=== PATIENT | male | born 1960 | race Caucasian/White ===

== ENCOUNTER 2018-10-20 10:35 | Inpatient (IN) | payer BC, OTHER ==
[2018-10-20] MEDS ORDERED: DEXTROSE 5% IN WATER 100 ML with AMIODARONE 150 MG IV ONE (10:43)
[2018-10-20] MEDS ORDERED: AMIODARONE 360 MG in DEXTROSE 5% IN WATER 200 ML IV ONE ×2 (10:43)
--- NOTE | 2018-10-20 10:50 | ED ---
General Adult HPI - General Chief complaint: Arrhythmia/Palpitations Stated complaint: AFIB Time Seen by Provider: 10/20/18 10:40 Source: RN/MD, EMS, RN notes reviewed Mode of arrival: EMS Limitations: no limitations - History of Present Illness Initial comments: Patient is a pleasant 38-year-old male presenting to the emergency Department as a transfer from Dr. Salas's office. Patient has had intermittent A. fib over the past several days. Patient has associated nausea. Patient has had one or 2 syncopal episodes. Patient does have history of known atrial fibrillation. Patient states he has had this problem of times previously, these episodes have been the past couple of days. Patient states episodes have been more so over the past couple months in fact. Patient does have history of this prior to the past couple of months as well. - Related Data Home Medications Medication Instructions Recorded Confirmed Acetaminophen [Tylenol] 325 mg PO Q4H PRN 05/18/14 10/20/18 Previous Rx's Medication Instructions Recorded Atenolol [Tenormin] 50 mg PO DAILY #90 tab 05/23/14 Flecainide [Tambocor] 50 mg PO Q12HR #180 tablet 05/23/14 Allergies Allergy/AdvReac Type Severity Reaction Status Date / Time adhesive AdvReac RED WELTS Verified 10/20/18 10:52 (WHEN ON FOR EXTENDED PERIODS) Review of Systems ROS Statement: Those systems with pertinent positive or pertinent negative responses have been documented in the HPI. ROS Other: All systems not noted in ROS Statement are negative. Constitutional: Denies: fever Eyes: Denies: eye pain ENT: Denies: ear pain Respiratory: Denies: cough, dyspnea Cardiovascular: Reports: palpitations Endocrine: Denies: fatigue Gastrointestinal: Reports: nausea. Denies: abdominal pain Genitourinary: Denies: dysuria Musculoskeletal: Denies: back pain Skin: Denies: rash Neurological: Denies: weakness, confusion Past Medical History Past Medical History: Atrial Fibrillation, Atrial Flutter Additional Past Medical History / Comment(s): RECENT STRAIN RT KNEE. SEE DR SALAS'S H&P. BEING TESTED FOR SLEEP APNEA, HAS 2ND STUDY PLANNED. History of Any Multi-Drug Resistant Organisms: None Reported Past Surgical History: Cardiac Ablation, Heart Catheterization Additional Past Surgical History / Comment(s): ABLATION 09/03, 10/03; CARDIOVERSION; C. CATH 12/2013. EXC WISDOM TEETH. Past Anesthesia/Blood Transfusion Reactions: No Reported Reaction Past Psychological History: Anxiety Smoking Status: Former smoker Past Alcohol Use History: None Reported Past Drug Use History: None Reported - Past Family History Mother Sister(s) Family Medical History: Cancer General Exam Limitations: no limitations General appearance: alert Head exam: Present: atraumatic, normocephalic Eye exam: Present: normal appearance, PERRL Neck exam: Present: normal inspection Respiratory exam: Present: normal lung sounds bilaterally Cardiovascular Exam: Present: tachycardia, irregular rhythm Expanded Peripheral pulses: 2+: Radial (R), Radial (L), Dorsalis Pedis (R), Dorsalis Pedis (L) GI/Abdominal exam: Present: soft. Absent: tenderness Extremities exam: Present: normal inspection. Absent: pedal edema, calf tenderness Neurological exam: Present: alert, oriented X3, CN II-XII intact. Absent: motor sensory deficit Psychiatric exam: Present: normal affect, normal mood Skin exam: Present: normal color Course Vital Signs 10/20/18 10/20/18 10/20/18 10:37 10:41 11:06 Temperature 98.0 F Pulse Rate 71 94 Pulse Rate [ 160 H Desktop Administrator ] Respiratory 20 20 Rate Blood Pressure 123/87 107/70 O2 Sat by Pulse 97 98 Oximetry 10/20/18 10/20/18 11:11 11:29 Temperature Pulse Rate 103 H 85 Pulse Rate [ Desktop Administrator ] Respiratory 18 Rate Blood Pressure 104/76 O2 Sat by Pulse 99 99 Oximetry - Reevaluation(s) Reevaluation #1: 10/20/18 10:48 Case was discussed with practitioner Kim with cardiology as well as Dr. Villalta. They do recommend amiodarone loading dose and drip and admitted to medicine. They will consult. Repeat EKG shows sinus rhythm with arrhythmia with a rate of 82. First-degree AV block MI 226. QRS 90. QT 358. QTC 418. Normal axis. Normal QRS. Nonspecific ST-T. Motion artifact is present. EKG Findings - EKG Comments: EKG Findings:: A. fib with RVR, rate 150. QRS 88. QT 290. QTC 458. Normal axis. Normal QRS. No acute ST change. Medical Decision Making - Medical Decision Making Patient reevaluated and resting comfortably in bed. Heart rate 95, sinus rhyt hm. Patient states he is having palpitations less frequently. Patient was seen in the emergency room by Dr. Villalta. Patient is updated on results and plan. [facility] [place] physician group has been paged for hospital call. - Lab Data Result diagrams: 10/20/18 10:38 10/20/18 10:38 Lab Results 10/20/18 10/20/18 10/20/18 Range/Units 10:38 10:38 10:38 WBC 6.0 (3.8-10.6) k/uL RBC 5.13 (4.30-5.90) m/uL Hgb 15.7 (13.0-17.5) gm/dL Hct 46.6 (39.0-53.0) % MCV 90.8 (80.0-100.0) fL MCH 30.6 (25.0-35.0) pg MCHC 33.7 (31.0-37.0) g/dL RDW 14.5 (11.5-15.5) % Plt Count 225 (150-450) k/uL Neutrophils % 52 % Lymphocytes % 37 % Monocytes % 7 % Eosinophils % 2 % Basophils % 0 % Neutrophils # 3.1 (1.3-7.7) k/uL Lymphocytes # 2.2 (1.0-4.8) k/uL Monocytes # 0.4 (0-1.0) k/uL Eosinophils # 0.1 (0-0.7) k/uL Basophils # 0.0 (0-0.2) k/uL PT 10.4 (9.0-12.0) sec INR 1.0 (<1.2) APTT 26.5 (22.0-30.0) sec Sodium 139 (137-145) mmol/L Potassium 4.4 (3.5-5.1) mmol/L Chloride 103 (98-107) mmol/L Carbon Dioxide 29 (22-30) mmol/L Anion Gap 7 mmol/L BUN 20 (9-20) mg/dL Creatinine 0.87 (0.66-1.25) mg/dL Est GFR (CKD-EPI)AfAm >90 (>60 ml/min/1.73 sqM) Est GFR (CKD-EPI)NonAf >90 (>60 ml/min/1.73 sqM) Glucose 121 H (74-99) mg/dL Calcium 9.9 (8.4-10.2) mg/dL Magnesium 2.0 (1.6-2.3) mg/dL Total Bilirubin 0.8 (0.2-1.3) mg/dL AST 18 (17-59) U/L ALT 23 (21-72) U/L Alkaline Phosphatase 66 (38-126) U/L Troponin I (0.000-0.034) ng/mL Total Protein 6.9 (6.3-8.2) g/dL Albumin 4.2 (3.5-5.0) g/dL 10/20/18 Range/Units 10:38 WBC (3.8-10.6) k/uL RBC (4.30-5.90) m/uL Hgb (13.0-17.5) gm/dL Hct (39.0-53.0) % MCV (80.0-100.0) fL MCH (25.0-35.0) pg MCHC (31.0-37.0) g/dL RDW (11.5-15.5) % Plt Count (150-450) k/uL Neutrophils % % Lymphocytes % % Monocytes % % Eosinophils % % Basophils % % Neutrophils # (1.3-7.7) k/uL Lymphocytes # (1.0-4.8) k/uL Monocytes # (0-1.0) k/uL Eosinophils # (0-0.7) k/uL Basophils # (0-0.2) k/uL PT (9.0-12.0) sec INR (<1.2) APTT (22.0-30.0) sec Sodium (137-145) mmol/L Potassium (3.5-5.1) mmol/L Chloride (98-107) mmol/L Carbon Dioxide (22-30) mmol/L Anion Gap mmol/L BUN (9-20) mg/dL Creatinine (0.66-1.25) mg/dL Est GFR (CKD-EPI)AfAm (>60 ml/min/1.73 sqM) Est GFR (CKD-EPI)NonAf (>60 ml/min/1.73 sqM) Glucose (74-99) mg/dL Calcium (8.4-10.2) mg/dL Magnesium (1.6-2.3) mg/dL Total Bilirubin (0.2-1.3) mg/dL AST (17-59) U/L ALT (21-72) U/L Alkaline Phosphatase (38-126) U/L Troponin I <0.012 (0.000-0.034) ng/mL Total Protein (6.3-8.2) g/dL Albumin (3.5-5.0) g/dL - Radiology Data Radiology results: image reviewed (Chest x-ray shows no acute process, mild cardiomegaly.) Critical Care Time Critical Care Time: Yes Total Critical Care Time: 33 Disposition Clinical Impression: Atrial fibrillation, Syncope Disposition: ADMITTED IP TO [facility] Condition: Serious Is patient prescribed a controlled substance at d/c from ED?: No Referrals: None,Stated [Primary Care Provider] - 1-2 days Decision Time: 11:46
--- NOTE | 2018-10-20 11:05 | XR ---
EXAMINATION TYPE: XR chest 1V portable DATE OF EXAM: 10/20/2018 Comparison: 11/06/2014 Clinical History: 58-year-old male dysrhythmia Findings: Heart mildly enlarged. Interstitial prominence is similar. No consolidation or sizable effusion seen. Impression: Mild cardiomegaly and chronic appearing changes. No definite acute process.
[2018-10-20 11:10] LABS: Partial Thromboplastin Time 26.5 sec (22.0-30.0); Prothrombin Time 10.4 sec (9.0-12.0)
[2018-10-20 11:14] LABS: ALT 23 U/L (21-72); AST 18 U/L (17-59); African American GFR (CKD) >90 (>60 ml/min/1.73 sqM); Albumin 4.2 g/dL (3.5-5.0); Alkaline Phosphatase 66 U/L (38-126); Anion Gap 7 mmol/L; Blood Urea Nitrogen 20 mg/dL (9-20); Calcium 9.9 mg/dL (8.4-10.2); Carbon Dioxide 29 mmol/L (22-30); Chloride 103 mmol/L (98-107); Glucose 121 mg/dL (74-99); Potassium 4.4 mmol/L (3.5-5.1); Sodium 139 mmol/L (137-145); Total Bilirubin 0.8 mg/dL (0.2-1.3); Total Protein 6.9 g/dL (6.3-8.2)
[2018-10-20] MEDS ORDERED: ENOXAPARIN 100 MG/ML SYRINGE SQ STA (11:18)
[2018-10-20 11:32] LABS: Basophils % (A) 0 %; Eosinophils # (A) 0.1 k/uL (0-0.7); Eosinophils % (A) 2 %; HCT 46.6 % (39.0-53.0); HGB 15.7 gm/dL (13.0-17.5); Lymphocytes # (A) 2.2 k/uL (1.0-4.8); Lymphocytes % (A) 37 %; MCH 30.6 pg (25.0-35.0); MCHC 33.7 g/dL (31.0-37.0); MCV 90.8 fL (80.0-100.0); Mean Platelet Volume 7.7; Monocytes # (A) 0.4 k/uL (0-1.0); Monocytes % (A) 7 %; Neutrophils # (A) 3.1 k/uL (1.3-7.7); Neutrophils % (A) 52 %; Platelet Count 225 k/uL (150-450); RBC 5.13 m/uL (4.30-5.90); RDW 14.5 % (11.5-15.5)
[2018-10-20] MEDS ORDERED: NITROGLYCERIN SL TABS 0.4 MG TAB SUBLINGUAL PRN ×2 (11:46→12:25)
[2018-10-20] MEDS ORDERED: ASPIRIN 81 MG PO STA (11:46)
[2018-10-20] MEDS ORDERED: ALPRAZolam 0.25 MG TAB PO PRN (12:25)
[2018-10-20] MEDS ORDERED: SODIUM CHLORIDE 0.9% 1,000 ML in EMPTY BAG 1 BAG IV ONE (12:25)
[2018-10-20] MEDS ORDERED: ALPRAZolam 0.5 MG TAB PO PRN (12:25)
--- NOTE | 2018-10-20 12:34 | P.PN ---
Subjective This is a pleasant 58 showed male past medical history significant for paroxysmal atrial fibrillation status post ablation. He follows in the office with Dr. Salas. He was in the office this morning undergoing a stress test and it was noted that his LV systolic function was diminished at peak stress and improved at rest suggesting possible underlying ischemic heart disease, there was also a fixed defect noted. However he also went into atrial fibrillation during exercise. He is also wearing a heart monitor for ongoing monitoring of his atrial fibrillation and was noted to have episodes of nonsustained ventricular tachycardia. He is currently maintained on flecainide 50 mg twice a day and atenolol 50 mg daily. After undergoing his stress test he began feeling acutely lightheaded and felt as though he was going to pass out associated with nausea but no vomitng. EKG in the office indicated atrial fibrillation with at 1:1 conduction, upon arrival similar EKG with rate in the 150's. Chest xray reveals cardiomegatly with no definite acute process. Laboratory data reviewed, WBC 6, hemoglobin 15.7, platelets 225, sodium 139, potassium 4.4, creatinine 0.87, magnesium 2.0, troponin negative 1 and TSH 2.12. At the time of my exam he is seen and examined sitting up in bed in no acute distress. He denies chest pain, shortness of breath dizziness, nausea or vomiting. He does continue to feel palpitations. Heart rate on the monitor is going between sinus with short bursts of atrial fibrillation. GENERAL: Well-appearing, well-nourished and in no acute distress. NECK: Supple without JVD or thyromegaly. LUNGS: Breath sounds clear to auscultation bilaterally. Respiration equal and unlabored. No wheezes, rales or rhonchi. HEART: Irregular rate and rhythm without murmurs, rubs or gallops. S1 and S2 heard. EXTREMITIES: Normal range of motion, no edema. No clubbing or cyanosis. Peripheral pulses intact. ASSESSMENT Paroxysmal atrial fibrillation with rapid ventricular response s/p ablation 2013 Pre-syncope History of non-sustained ventricular tachycardia on flecanide. Flecanide has been discontinued. PLAN Initiate on amiodarone bolus and then infusion. Give one dose of lovenox 100 mg SQ now. terminal carman anticoagulation to be addressed after heart catheterization. Resume atenolol 50 mg daily, may increase as needed. Discontinue flecanide. Pt underwent a stress test in the office revealing impaired LV systolic function with stress that improved with rest suggesting possible underlying ischemia. Also noted there was a fixed defect. Recommend cardiac catheterization for further assessment. I have discussed the risks, benefits and alternative therapies for the above-mentioned procedure and for both sedation/analgesia as well as necessary blood product administration, if indicated, as they pertain to this patient. The patient has indicated understanding and acceptance of the risks and procedures discussed. Cryo-ablation of the pulmonary veins after catheterization. Further recommendations to follow based on clinical course. Nurse Practitioner note has been reviewed, I agree with a documented findings and plan of care. Patient was seen and examined. Objective - Vital Signs Vital signs: Vital Signs Temp 98.0 F 10/20/18 10:37 Pulse 90 10/20/18 12:12 Resp 18 10/20/18 12:12 BP 107/77 10/20/18 12:12 Pulse Ox 99 10/20/18 12:12 Intake & Output 10/19/18 10/20/18 10/20/18 18:59 06:59 18:59 Weight 106.594 kg - Labs CBC & Chem 7: 10/20/18 10:38 10/20/18 10:38 Labs: Abnormal Lab Results - Last 24 Hours (Table) 10/20/18 Range/Units 10:38 Glucose 121 H (74-99) mg/dL
--- NOTE | 2018-10-20 13:41 | P.HPIM ---
History of Present Illness H&P Date: 10/20/18 The patient is a 58-year-old male with a PMH of paroxysmal atrial fibrillation s/p ablation who was transferred to the ED from Dr. reyna office. The patient regularly follows with Dr. chan and was undergoing an exercise stress test earlier today. Following the completion of the stress test, the patient developed lightheadedness and states that he had a brief loss of consciousness while he was laying down. He also reported associated nausea with no vomiting but denied chest pain or diaphoresis. At time of interview, the patient reported that he feels as though he is back to baseline and denied any active complaints. He denied chest pain, shortness of breath, nausea, vomiting, fever, chills, cough, dysuria or diarrhea. EKG in the repairer art objects's office showed atrial fibrillation. The patient was subsequently transferred to the ED where he underwent an extensive evaluation with chest x-ray showing mild cardiomegaly and EKG again showing atrial fibrillation with RVR at 150 bpm with APCs. Laboratory evaluation revealed a troponin of less than 0.012, WBC 6.0, hemoglobin 15.7, platelets 225, BUN 20, and creatinine 0.87. Cardiology evaluated the patient in the ED and noted that as the patient was undergoing the stress test at Dr. Pandya's office, it was noted that his LV systolic function was diminished at peak stress and improved with rest and that he was also noted to have episodes of nonsustained ventricular tachycardia. He subsequently recommended cardiac catheterization for further assessment, scheduled for tomorrow. Patient was given 1 dose of Lovenox 100 mg subcu in the ED, given an amiodarone bolus and was started on the amiodarone infusion. Review of Systems Pertinent positives and negatives as discussed in HPI, a complete review of systems was performed and all other systems are negative. Past Medical History Past Medical History: Atrial Fibrillation, Atrial Flutter, Sleep Ap emeka/CPAP/BIPAP, Syncope Additional Past Medical History / Comment(s): CARLOS MANUEL-does not tolerate device. History of Any Multi-Drug Resistant Organisms: None Reported Past Surgical History: Cardiac Ablation, Heart Catheterization Additional Past Surgical History / Comment(s): Cardiac ablation x 3, cardiov ersion, cardiac cath 2013, wisdom teeth extractions. Past Anesthesia/Blood Transfusion Reactions: No Reported Reaction Smoking Status: Former smoker - Past Family History Father Family Medical History: Congestive Heart Failure (CHF) Additional Family Medical History / Comment(s): Father is . Mother Sister(s) Family Medical History: Cancer Additional Family Medical History / Comment(s): Mother is . She had breast cancer. Medications and Allergies Home Medications Medication Instructions Recorded Confirmed Type Acetaminophen [Tylenol] 325 mg PO Q4H PRN 05/18/14 10/20/18 History Atenolol [Tenormin] 50 mg PO DAILY #90 tab 05/23/14 10/20/18 Rx Flecainide [Tambocor] 50 mg PO Q12HR #180 tablet 05/23/14 10/20/18 Rx Allergies Allergy/AdvReac Type Severity Reaction Status Date / Time adhesive AdvReac RED WELTS Verified 10/20/18 10:52 (WHEN ON FOR EXTENDED PERIODS) Physical Exam Vitals: Vital Signs Temp Pulse Pulse Resp BP Pulse Ox 10/20/18 12:57 67 20 116/78 98 10/20/18 12:12 90 18 107/77 99 10/20/18 11:29 85 18 104/76 99 10/20/18 11:11 103 H 99 10/20/18 11:06 94 20 107/70 98 10/20/18 10:41 160 H 10/20/18 10:37 98.0 F 71 20 123/87 97 Intake and Output 10/19/18 10/20/18 10/20/18 22:59 06:59 14:59 Other: Weight 106.594 kg General: non toxic, no distress, appears at stated age, normal weight Derm: no unusual rashes/lesions no unusual ecchymoses, warm, dry Head: atraumatic, normocephalic, symmetric Eyes: EOMI, no lid lag, anicteric sclera, pupils equal round reactive to light ENT: Nose and ears atraumatic, no thrush, no pharyngeal erythema Neck: No thyromegaly, no cervical lymphadenopathy, trachea midline, supple Mouth: no lip lesion, mucus membranes moist Cardiovascular: Irregularly regular, no murmur, positive posterior tibial pulse bilateral, no edema, capillary refill less than 2 seconds Lungs: CTA bilateral, no rhonchi, no rales , no accessory muscle use Abdominal: soft, nontender to palpation, no guarding, no appreciable organomegaly, normal bowel sounds Ext: no gross muscle atrophy, muscle strength 5 out of 5 in all 4 extremities grossly, no contractures, Neuro: CN II-XI grossly intact, light touch intact all 4 extremities, finger to nose within normal limits, Psych: Alert, oriented, appropriate affect Results CBC & Chem 7: 10/20/18 10:38 10/20/18 10:38 Labs: Abnormal Lab Results - Last 24 Hours (Table) 10/20/18 Range/Units 10:38 Glucose 121 H (74-99) mg/dL Thrombosis Risk Factor Assmnt - Choose All That Apply Any of the Below Risk Factors Present?: Yes Each Factor Represents 1 point: Age 41-60 years, Obesity (BMI >25) Other Risk Factors: No Other congenital or acquired thrombophilia - If yes, enter type in comment: No Thrombosis Risk Factor Assessment Total Risk Factor Score: 2 Thrombosis Risk Factor Assessment Level: Low Risk Assessment and Plan Plan: Paroxysmal atrial fibrillation with rapid ventricular rate -Cardiology recommendations appreciated -Continue with the amiodarone and atenolol home dose -Continue with Lovenox subcu for now -Coated monitoring -Patient scheduled for cardiac catheterization in the a.m. Abnormal stress test -As per above -Scheduled for catheterization in the morning -Check A1c and lipid panel Nonsustained V. tach while on flecainide -Flecainide was discontinued by cardiology Obesity -Advised patient on importance of weight loss -Advised outpatient follow-up with dietitian DVT prophylaxis -Lovenox The patient is admitted with an anticipated greater than 2 midnight stay for evaluation of Afib w/ RVR and abnormal stress test. CODE STATUS:Full Code Discussed with: Patient Anticipated discharge date: 2-[address]: Home A total of 45 minutes was spent on the care of this complex patient more than 50% of the time was spent in counseling and care coordination.
[2018-10-20] MEDS: ATENOLOL 50 MG TAB PO SCH (14:59)
[2018-10-20] MEDS ORDERED: DILTIAZEM 125 MG in SODIUM CHLORIDE 0.9% 100 ML IV SCH (18:15)
[2018-10-20] MEDS: AMIODARONE 300 MG in DEXTROSE 5% IN WATER 250 ML IV SCH ×2 (18:53)
[2018-10-21] MEDS: AMIODARONE 300 MG in DEXTROSE 5% IN WATER 250 ML IV SCH ×4 (03:40→04:32)
[2018-10-21 07:10] LABS: HCT 45.1 % (39.0-53.0); HGB 14.8 gm/dL (13.0-17.5); MCH 30.2 pg (25.0-35.0); MCHC 32.9 g/dL (31.0-37.0); MCV 91.8 fL (80.0-100.0); Mean Platelet Volume 7.2; Platelet Count 197 k/uL (150-450); RBC 4.91 m/uL (4.30-5.90); RDW 12.9 % (11.5-15.5); WBC 6.9 k/uL (3.8-10.6)
[2018-10-21 07:16] LABS: Cholesterol 144 mg/dL (<200); HDL Cholesterol 30 mg/dL (40-60); LDL Cholesterol,Calculated 94 mg/dL (0-99); Triglycerides 100 mg/dL (<150)
[2018-10-21] MEDS ORDERED: ATORVASTATIN 80 MG TAB PO STA (08:09)
[2018-10-21] MEDS: ASPIRIN 325 MG TAB PO SCH (09:11)
[2018-10-21] MEDS: ATENOLOL 50 MG TAB PO SCH (09:11)
--- NOTE | 2018-10-21 11:40 | P.PN ---
Subjective Progress Note Date: 10/21/18 The patient is a 58-year-old male with a PMH of paroxysmal atrial fibrillation s/p ablation who was transferred to the ED from Dr. Salas's office. The patient regularly follows with Dr. Salas and was undergoing an exercise stress test earlier today. Following the completion of the stress test, the patient developed lightheadedness and had a brief loss of consciousness while he was laying down. He also reported associated nausea with no vomiting but denied chest pain or diaphoresis. EKG in the rn assessment's office showed atrial fibrillation. The patient was subsequently transferred to the ED where he underwent an extensive evaluation with chest x-ray showing mild cardiomegaly and EKG again showing atrial fibrillation with RVR at 150 bpm with APCs. Laboratory evaluation revealed a troponin of less than 0.012, WBC 6.0, hemoglobin 15.7, platelets 225, BUN 20, and creatinine 0.87. Cardiology evaluated the patient in the ED and noted that as the patient was undergoing the stress test at Dr. Salas's office, it was noted that his LV systolic function was diminished at peak stress and improved with rest and that he was also noted to have episodes of nonsustained ventricular tachycardia. Cardiology subsequently recommended cardiac catheterization for further assessment. Patient was given 1 dose of Lovenox 100 mg subcu in the ED, given an amiodarone bolus and was started on the amiodarone infusion. The patient was seen and examined at the bedside on 10/21/2018. The patient is scheduled for the cardiac catheterization later today. He noted that he is back to his baseline and denied any active complaints. He denied further chest pain, shortness of breath, nausea, vomiting, or palpitations. He denied abdominal pain, dysuria, or diarrhea. Has denied fever, chills, or cough. Objective - Vital Signs Vital signs: Vital Signs Temp 97.8 F 10/21/18 08:45 Pulse 75 10/21/18 08:45 Resp 18 10/21/18 08:45 BP 114/64 10/21/18 08:45 Pulse Ox 96 10/21/18 08:45 Intake & Output 10/20/18 10/21/18 10/21/18 18:59 06:59 18:59 Intake Total 826.50 0 Balance 826.50 0 Weight 106.594 kg 107 kg Intake: Intake, IV Titration 826.50 Amount Amiodarone 300 mg In 241.25 Dextrose 5% in Water 250 ml @ 0.5 MG/MIN 25 mls/hr IV .Q10H [facility] Rx#: [id number] Diltiazem 125 mg In 52.25 Sodium Chloride 0.9% 100 ml @ 5 MG/HR 5 mls/hr IV .Q24H [facility] Rx#:[id number] Sodium Chloride 0.9% 1, 533 000 ml In Empty Bag 1 bag @ 1 ML/KG/HR 106.594 mls /hr IV .Q9H23M [facility] Rx#: [id number] Oral 0 Other: Voiding Method Toilet Toilet # Voids 1 2 1 - Exam General: Non-toxic, in no acute distress, appears stated age, normal weight HEENT: NC/AT, anicteric sclerae, moist conjunctiva, no lid-lag, PERRLA Cardiovascular: S1/S2 wnl, no murmurs, rubs, or gallops Lungs: Clear to auscultation, normal respiratory effort, no accessory muscle use Abdominal: Soft, non-tender, non-distended, no guarding, rebound, or rigidity Skin: Warm, dry Extremities: No edema or contractures Psychiatric: Alert and oriented to person, place and time, appropriate affect Neuro: CN II-XII grossly intact, Strength 5/5 in all 4 extremities, Speech intact, Sensation to light touch grossly intact throughout - Labs CBC & Chem 7: 10/21/18 06:45 10/20/18 10:38 Labs: Abnormal Lab Results - Last 24 Hours (Table) 10/20/18 10/21/18 Range/Units 22:28 06:45 Troponin I 0.039 H* (0.000-0.034) ng/mL HDL Cholesterol 30 L (40-60) mg/dL Assessment and Plan Plan: Paroxysmal atrial fibrillation with rapid ventricular rate -Cardiology recommendations appreciated -Continue with the amiodarone and atenolol home dose -Continue with Lovenox subcu for now -Cardiac monitoring -Scheduled to undergo cardiac catheterization today Abnormal stress test -As per above -Scheduled for catheterization -Check A1c and lipid panel Nonsustained V. tach while on flecainide -Flecainide was discontinued by cardiology Obesity -Advised patient on importance of weight loss -Advised outpatient follow-up with dietitian DVT prophylaxis -Lovenox Discussed with: Patient Anticipated discharge date: 10/23/[address]: Home A total of 35 minutes was spent on the care of this complex patient more than 50% of the time was spent in counseling and care coordination.
[2018-10-21] MEDS ORDERED: VERAPAMIL 2.5 MG/ML 2 ML AMP ONE (12:30)
[2018-10-21] MEDS ORDERED: LIDOCAINE 1% INJ 10MG/ML (20 ML MDV) ONE ×2 (12:30→12:31)
[2018-10-21] MEDS ORDERED: HEPARIN SODIUM 1,000 UN/ML (10ML VL) ONE (12:30)
[2018-10-21] MEDS ORDERED: IV FLUID CONTINUATION 1,000 ML IV ONE (12:36)
[2018-10-21] MEDS ORDERED: SODIUM CHLORIDE 0.9% 1,000 ML IV ONE (12:36)
[2018-10-21] MEDS ORDERED: MIDAZOLAM (PF) 2 MG/2 ML VIAL IV ONE (12:37)
[2018-10-21] MEDS ORDERED: LIDOCAINE 1% INJ 10MG/ML (20 ML MDV) SQ ONE (12:39)
[2018-10-21] MEDS: VERAPAMIL SYRINGE (5 MG/10 ML) INTRAARTER ONE ×2 (12:43→12:54)
[2018-10-21] MEDS ORDERED: HEPARIN SODIUM 1,000 UN/ML (10ML VL) IV ONE (12:44)
[2018-10-21] MEDS ORDERED: IOPAMIDOL-370 100ML BTL INJ ONE (12:54)
[2018-10-21 12:59] VITALS: RESP 16
[2018-10-21] MEDS ORDERED: RX INFO: IV CONTRAST WAS GIVEN 1 EACH MISC MISCELLANE PRN (13:09)
--- NOTE | 2018-10-21 13:45 | CC ---
CARDIAC CATHETERIZATION REPORT DATE OF PROCEDURE: 10/21/2018 PROCEDURE: Left heart catheterization and coronary angiography. PERFORMED BY: Dr. Adia Villalta. Moderate conscious sedation time was 22 minutes. Patient was administered Versed. His oxygen saturation, hemodynamics and EKG were monitored closely. CLINICAL INFORMATION: Mr. Nima Ghosh is a 58-year-old gentleman with a history of atrial flutter, status post radiofrequency ablation by Dr. Salas in 2014. He has been having episodes of atrial fibrillation which he describes as sensation of palpitations. He came into the hospital for a stress test, went into atrial fibrillation with a rapid rate with 1:1 conduction and also had short runs of what seemed to be wide QRS tachycardia suggestive of ventricular tachycardia. Patient was on flecainide. Flecainide was discontinued. Amiodarone was initiated. He was sent to the hospital. He converted to sinus rhythm and then was advised cardiac catheterization in view of his ventricular tachycardia and with flecainide on board. Rationale, risks, benefits and options were explained to the patient in detail. PROCEDURE NOTE: Under local anesthesia and strict aseptic precautions, a 6-Honduran introducer was placed in the right radial artery. Using an Ultimate 1 catheter, I performed selective coronary angiography of the right and left coronary arteries, and a pigtail catheter was used to check LV pressures. LV gram was not performed. The catheter and sheath were taken out and TR band applied as per protocol. The saturation in the fingers of the right hand was 99%. The patient tolerated procedure well without complications. He does not have any significant obstructive CAD. Findings were reviewed with the patient, family and Dr. Salas. CARDIAC CATHETERIZATION FINDINGS: The left ventricular end-diastolic pressure was 12 mmHg without any gradient across the aortic valve. CORONARY ANGIOGRAPHY FINDINGS: RIGHT CORONARY ARTERY: Technically a nondominant vessel which does not have significant obstructive CAD, has minor irregularities and supplies a limited amount of myocardium. No significant disease in the nondominant RCA. LEFT MAIN CORONARY ARTERY: Short, patent, disease-free vessel that bifurcates into LAD and circumflex. LEFT ANTERIOR DESCENDING CORONARY ARTERY: Good-caliber vessel extends along the anterior wall, gives off septal and diagonal branches, runs all the way to the apex, supplying a sizable amount of myocardium. It curves over the apex to supply the inferoapical portion of the left ventricle. LEFT POSTERIOR CIRCUMFLEX CORONARY ARTERY: Technically a dominant vessel. However, it is smaller in distribution, gives off a single obtuse marginal that runs distally, bifurcates into 2 small branches, and then continuation of the circumflex in the AV groove is also free of significant disease. No significant disease is noted in the circumflex system; however, even though this is a dominant circumflex, the vessel appears to be smaller in distribution. LEFT VENTRICULOGRAM: This was not performed. FINAL IMPRESSION: This patient has normal filling pressures and no gradient across the aortic valve and no obstructive coronary artery disease of significance. He has a left-dominant system; however, circumflex is not a very large-distribution vessel. Circumflex and LAD are free of significant disease. RCA is nondominant, with no significant disease. RECOMMENDATION: Continued medical therapy is advised. Findings were discussed with the patient, family and Dr. Salas. We will switch him from IV to oral amiodarone. MMODL / IJN: [id number] /
[2018-10-21] MEDS: AMIODARONE 200 MG TAB PO SCH ×2 (14:58→20:49)
[2018-10-21] MEDS: SODIUM CHLORIDE 0.9% 1,000 ML IV SCH (15:03)
[2018-10-21] MEDS: APIXABAN 5 MG TAB PO SCH (20:49)
[2018-10-22] MEDS: SODIUM CHLORIDE 0.9% 1,000 ML IV SCH (07:00)
[2018-10-22] MEDS: ASPIRIN 325 MG TAB PO SCH (08:45)
[2018-10-22] MEDS: APIXABAN 5 MG TAB PO SCH (08:45)
[2018-10-22] MEDS: AMIODARONE 200 MG TAB PO SCH (08:45)
[2018-10-22] MEDS: ATENOLOL 50 MG TAB PO SCH (08:45)
[2018-10-22 11:00] VITALS: BP 113/76; PULSE 76; TEMP 98
--- NOTE | 2018-10-22 11:17 | ECHOF ---
Referral Reason:Afib ? Cardiomyopathy. MEASUREMENTS -------- HEIGHT: 182.9 cm WEIGHT: 106.6 kg BP: 110/74 RVIDd: 2.8 cm (< 3.3) IVSd: 1.2 cm (0.6 - 1.1) LVIDd: 4.7 cm (3.9 - 5.3) LVPWd: 1.3 cm (0.6 - 1.1) IVSs: 1.2 cm LVIDs: 3.3 cm LVPWs: 1.7 cm LAESV Index (A-L): 29.07 ml/m Ao Diam: 3.9 cm (2.0 - 3.7) AV Cusp: 1.9 cm (1.5 - 2.6) LA Diam: 3.1 cm (2.7 - 3.8) EPSS: 0.5 cm MV E Kurt: 1.07 m/s MV DecT: 185 ms MV A Kurt: 0.60 m/s MV E/A Ratio: 1.79 RAP: 20.00 mmHg RVSP: 40.04 mmHg MV EF SLOPE: 131.22 mm/s (70 - 150) MV EXCURSION: 2.92 cm (> 18.000) FINDINGS -------- Sinus rhythm. This was a technically adequate study. The left ventricular size is normal. There is mild concentric left ventricular hypertrophy. Overa ll left ventricular systolic function is normal with, an EF between 55 - 60 %. The diastolic fillin g pattern is normal for the age of the patient. The right ventricle is normal in size. Left atrium is mildly dilated by volume. The right atrial size is normal. Interatrial and interventricular septum intact. The aortic valve was not well visualized. There is no evidence of aortic regurgitation. There is no evidence of aortic stenosis. The mitral valve leaflets are moderately thickened. Mild mitral annular calcification present. Mi ld mitral regurgitation is present. Mild tricuspid regurgitation present. There is mild pulmonary hypertension. The right ventricular systolic pressure, as measured by Doppler, is 40.04mmHg. There is no pulmonic regurgitation present. The aortic root is mildy dilated. The aortic root and ascending aorta are dilated measuring up to 4 .2 cm . The inferior vena cava is dilated with poor inspiratory collapse which is consistent with estimated r ight atrial pressure of 20 mmHg. There is no pericardial effusion. CONCLUSIONS -------- 1. Sinus rhythm. 2. This was a technically adequate study. 3. The left ventricular size is normal. 4. There is mild concentric left ventricular hypertrophy. 5. Overall left ventricular systolic function is normal with, an EF between 55 - 60 %. 6. The diastolic filling pattern is normal for the age of the patient. 7. The right ventricle is normal in size. 8. Left atrium is mildly dilated by volume. 9. The right atrial size is normal. 10. Interatrial and interventricular septum intact. 11. The aortic valve was not well visualized. 12. There is no evidence of aortic regurgitation. 13. There is no evidence of aortic stenosis. 14. The mitral valve leaflets are moderately thickened. 15. Mild mitral annular calcification present. 16. Mild mitral regurgitation is present. 17. Mild tricuspid regurgitation present. 18. There is mild pulmonary hypertension. 19. The right ventricular systolic pressure, as measured by Doppler, is 40.04mmHg. 20. There is no pulmonic regurgitation present. 21. The aortic root and ascending aorta are dilated measuring up to 4.2 cm. 22. The inferior vena cava is dilated with poor inspiratory collapse which is consistent with estimat ed right atrial pressure of 20 mmHg. 23. There is no pericardial effusion. SPECIAL EDUCATION MATH TEACHER: Melinda Cohen RDCS
--- NOTE | 2018-10-22 11:51 | PN ---
PROGRESS NOTE Nima is a 58-year-old gentleman who is admitted to hospital with A. Fib and cardiomyopathy. During his exercise there was a significant decrease in his LV systolic function. He also went into A. Fib during exercise. Due to this, he was brought in and underwent cardiac catheterization that showed normal coronary arteries. At the time of my evaluation this morning, he appears comfortable at rest and is free of symptoms. Physical exam has remained benign and unchanged. Radial artery cath site appears normal. LABS: Labs show that the hemoglobin is 14.8. His troponin was mildly elevated at 0.03. LDL cholesterol is 94. ASSESSMENT: 1. Abnormal stress test, status post catheterization. 2. History of atrial fibrillation. PLAN: Patient is doing well. He is ready to be discharged. Follow up with Dr. Salas in the outpatient. MMODL / IJN: [id number] /
--- NOTE | 2018-10-22 12:30 | P.DS ---
Providers Date of admission: 10/20/18 11:46 Expected date of discharge: 10/22/18 Attending physician: Brittany Calderon MD Consults: 10/20/18 11:46 Consult Physician Stat Consulting Provider: Marisol Villalta Consult Reason/Comments: A. fib with RVR, syncope Do you want consulting provider notified?: Already Contacted Primary care physician: Stated None Hospital Course: The patient is a 58-year-old male with a PMH of paroxysmal atrial fibrillation s/p ablation who was transferred to the ED from Dr. Salas's office. The patient regularly follows with Dr. Salas and was undergoing an exercise stress test that day. Following the completion of the stress test, the patient developed lightheadedness and had a brief loss of consciousness while he was laying down. He also reported associated nausea with no vomiting but denied chest pain or diaphoresis. EKG in the residency program coordinator's office showed atrial fibrillation. The patient was subsequently transferred to the ED where he underwent an extensive evaluation with chest x-ray showing mild cardiomegaly and EKG again showing atrial fibrillation with RVR at 150 bpm with APCs. Laboratory evaluation revealed a troponin of less than 0.012, WBC 6.0, hemoglobin 15.7, platelets 225, BUN 20, and creatinine 0.87. Cardiology evaluated the patient in the ED and noted that as the patient was undergoing the stress test at Dr. Travis castro's office, it was noted that his LV systolic function was diminished at peak stress and improved with rest and that he was also noted to have episodes of nonsustained ventricular tachycardia. Cardiology subsequently recommended cardiac catheterization for further assessment. Patient was given 1 dose of Lovenox 100 mg subcu in the ED, given an amiodarone bolus and was started on the amiodarone infusion. The patient underwent a cardiac catheterization on 10/21/2018 which showed normal coronary arteries. Patient was seen and examined at the bedside on the day of discharge. He was in good spirits and denied any active complaints. He reported no episodes of shortness of breath, palpitations, or chest discomfort. He further denied fever, chills, cough, nausea, vomiting. The patient was advised that if his symptoms recur to return to the emergency room. The patient was initiated on Eliquis and oral amiodarone upon discharge, as per the recommendations of cardiology. Physical Examination General: Non-toxic, in no acute distress, appears stated age, normal weight HEENT: NC/AT, anicteric sclerae, moist conjunctiva, no lid-lag, PERRLA Cardiovascular: S1/S2 wnl, no murmurs, rubs, or gallops Lungs: Clear to auscultation, normal respiratory effort, no accessory muscle use Abdominal: Soft, non-tender, non-distended, no guarding, rebound, or rigidity Skin: Warm, dry Extremities: No edema or contractures Psychiatric: Alert and oriented to person, place and time, appropriate affect Neuro: CN II-XII grossly intact, Strength 5/5 in all 4 extremities, Speech intact, Sensation to light touch grossly intact throughout Discharge diagnosis: Abnormal stress test, status post cardiac catheterization; proximal atrial fibrillation with RVR; history of an SVT while on flecainide A total of 45 minutes of time were spent preparing this complex discharge summary. Patient Condition at Discharge: Serious Plan - Discharge Summary Discharge Rx Participant: No New Discharge Prescriptions: New Amiodarone [Cordarone] 200 mg PO BID #28 tab Apixaban [Eliquis] 5 mg PO BID #28 tab Continue Atenolol [Tenormin] 50 mg PO DAILY #90 tab Discontinued Acetaminophen [Tylenol] 325 mg PO Q4H PRN PRN Reason: Pain Flecainide [Tambocor] 50 mg PO Q12HR #180 tablet Discharge Medication List Atenolol [Tenormin] 50 mg PO DAILY #90 tab 05/23/14 [Rx] Amiodarone [Cordarone] 200 mg PO BID #28 tab 10/22/18 [Rx] Apixaban [Eliquis] 5 mg PO BID #28 tab 10/22/18 [Rx] Follow up Appointment(s)/Referral(s): Curt Salas MD [STAFF PHYSICIAN] - 10/29/18 2:00 pm None,Stated [Primary Care Provider] - 1-2 days (Has primary physician. Please follow up with primary physician within one week of discharge from the hospital.) Patient Instructions/Handouts: A-fib (Atrial Fibrillation) (DC), Heart Healthy Diet (DC), Safe Use of Anticoagulants (DC), After Radial Heart Catheterization (GEN) Activity/Diet/Wound Care/Special Instructions: pt qualifies for $10/mo Eliquis-coupon supplied to pt Discharge Disposition: HOME SELF-CARE
== END 2018-10-22 11:59 | disposition home or self-care (01) | DRG 287 ==
LOC: EC 10:35 → 3SCARD 11:46
PROVIDERS: ADMIT Internal Medicine; ATTEND Internal Medicine
PROC: B2111ZZ Fluoroscopy of Multiple Coronary Arteries using Low Osmolar Contrast (ICD-10-PCS; 2018-10-21)
PROC: 4A023N7 Measurement of Cardiac Sampling and Pressure, Left Heart, Percutaneous Approach (ICD-10-PCS; principal; 2018-10-21 12:21)
DX: I48.0 Paroxysmal atrial fibrillation (principal); I47.2 Ventricular tachycardia; G47.33 Obstructive sleep apnea (adult) (pediatric); Z87.891 Personal history of nicotine dependence; Z82.49 Family history of ischemic heart disease and other diseases of the circulatory system; Z80.3 Family history of malignant neoplasm of breast; Z79.899 Other long term (current) drug therapy; I42.9 Cardiomyopathy, unspecified; I48.92 Unspecified atrial flutter; R94.39 Abnormal result of other cardiovascular function study
CPT/HCPCS: 36415; 71045; 80053; 80061; 83735; 84443; 84484; 85025; 85027; 85610; 85730; 93005; 93306; 93458; 96365; 96366; 99291

== ENCOUNTER 2018-12-06 09:05 | Day surgery (SDC) | payer OTHER ==
[2018-11-30 15:04] VITALS: BMI 27.0
[~2018-12-06 09:05] MED LIST: SODIUM CHLORIDE 0.9% 1,000 ML IV SCH
[2018-12-06 09:59] LABS: Basophils % (A) 1 %; Eosinophils # (A) 0.1 k/uL (0-0.7); Eosinophils % (A) 1 %; HCT 42.9 % (39.0-53.0); HGB 14.7 gm/dL (13.0-17.5); Lymphocytes # (A) 1.6 k/uL (1.0-4.8); Lymphocytes % (A) 26 %; MCH 30.4 pg (25.0-35.0); MCHC 34.3 g/dL (31.0-37.0); MCV 88.8 fL (80.0-100.0); Mean Platelet Volume 7.4; Monocytes # (A) 0.4 k/uL (0-1.0); Monocytes % (A) 6 %; Neutrophils # (A) 3.9 k/uL (1.3-7.7); Neutrophils % (A) 64 %; Platelet Count 198 k/uL (150-450); RBC 4.84 m/uL (4.30-5.90); RDW 12.8 % (11.5-15.5); WBC 6.1 k/uL (3.8-10.6)
[2018-12-06 10:09] LABS: African American GFR (CKD) >90 (>60 ml/min/1.73 sqM); Anion Gap 9 mmol/L; Blood Urea Nitrogen 13 mg/dL (9-20); Calcium 9.3 mg/dL (8.4-10.2); Carbon Dioxide 23 mmol/L (22-30); Chloride 107 mmol/L (98-107); Glucose 118 mg/dL (74-99); Potassium 4.7 mmol/L (3.5-5.1); Sodium 139 mmol/L (137-145)
[2018-12-06] MEDS ORDERED: LIDOCAINE URO-JET JELLY 2% 5 ML KIT ONE (11:49)
[2018-12-06] MEDS ORDERED: PROTAMINE SULFATE 10 MG/ML 5 ML VIAL IV ONE (12:25)
[2018-12-06] MEDS ORDERED: PHENYLEPHRINE-0.9% NACL SYG 1 MG/10 ML SYRINGE ONE (12:25)
[2018-12-06] MEDS ORDERED: LIDOCAINE 1% INJ 10MG/ML (20 ML MDV) ONE (12:25)
[2018-12-06] MEDS ORDERED: MIDAZOLAM 2 MG/2 ML VIAL ONE (12:25)
[2018-12-06] MEDS ORDERED: fentaNYL (PF) 50 MCG/ML 2 ML AMP ONE (12:25)
[2018-12-06] MEDS ORDERED: ISOPROTERENOL 250 MCG/1.25 ML SYR IV ONE (12:25)
[2018-12-06] MEDS ORDERED: DEXAMETHASONE SOD PHOS (MDV) 100 MG/10 ML VIAL ONE (12:25)
[2018-12-06] MEDS ORDERED: ROCURONIUM BROMIDE 10 MG/ML 10 ML VIAL IV ONE (12:25)
[2018-12-06] MEDS ORDERED: ONDANSETRON 4 MG/2 ML VIAL ONE (12:25)
[2018-12-06] MEDS ORDERED: PROPOFOL 10 MG/ML 20 ML VIAL IV ONE (12:25)
[2018-12-06] MEDS ORDERED: HEPARIN SODIUM,PORCINE 10,000 UNIT/ML 1 ML VIAL ONE (12:25)
[2018-12-06] MEDS ORDERED: FUROSEMIDE 10 MG/ML 2 ML VIAL ONE (12:25)
[2018-12-06] MEDS ORDERED: SUCCINYLCHOLINE CHLORIDE 100 MG/5 ML SYR IV ONE (12:25)
[2018-12-06] MEDS ORDERED: LIDOCAINE 1% INJ 10MG/ML (20 ML MDV) SQ ONE (13:11)
[2018-12-06] MEDS ORDERED: HEPARIN SOD,PORK IN 0.45% NACL 25,000 UNIT in 0.45% NACL 1 250ML.BAG IV ONE (13:15)
[2018-12-06] MEDS ORDERED: IOPAMIDOL-250 100ML BTL IV ONE (15:08)
[2018-12-06] MEDS ORDERED: HEPARIN SODIUM (1,000 UNIT/ML) 1,000 UNIT in SODIUM CHLORIDE 0.9% 1,000 ML IRRIGATION ONE (15:09)
[2018-12-06] MEDS ORDERED: LACTATED RINGERS 1,000 ML IV ONE (15:55)
[2018-12-06] MEDS ORDERED: HYDROcodone/APAP 5-325MG 1 EACH TAB PO PRN (16:04)
[2018-12-06] MEDS ORDERED: ACETAMINOPHEN TAB 325 MG TAB PO PRN (16:04)
--- NOTE | 2018-12-06 16:12 | P.HPCAR ---
History of Present Illness This is Dr. Salas dictating an H&P on this patient The patient was interviewed and examined by me IMPRESSION / ASSESSMENT: Recurrent drug refractory atrial tachycardia with RVR and intermittently wide complex tachycardia consistent with aberrancy Nonsustained runs of Wide complex tachycardia consistent with VT on flecainide. Flecainide discontinued Treated with amiodarone Breakthrough episodes of atrial tachycardia, very symptomatic with dizziness on amiodarone For the last 2 weeks he is been experiencing palpitations with dizziness, off amiodarone Normal coronary arteries by cardiac catheterization PVI performed many years back [place] [address] in [place] Atrial flutter ablation at [facility] in 2014 PLAN: A. fib and atrial tachycardia ablation Continue apixaban HPI Patient has recurrent episodes of palpitations which are very symptomatic associated with dizziness lightheadedness and syncope He has had breakthrough episodes of atrial fibrillation and atrial tachycardia with RVR He has had runs of nonsustained ventricular tachycardia on flecainide. Flecainide was discontinued He has failed amiodarone and has had recurrent episodes, one of which required admission to the hospital Normal coronary arteries This morning he denied any fever chills cough. Symptoms orthopnea PND or breathing trouble but he was complaining of palpitations for the last several days associated with dizziness and presyncope ROS: No fever chills or rigors, no cough, phlegm or expectoration, no nausea, vomiting or diarrhea, no hematuria, dysuria, no musculoskeletal complaints, no strokes or seizures, no skin lesions. EXAMINATION: Afebrile 97.7F, pulse rate in the 50s, blood pressure 110/70 400 his mercury, 99% oxygen saturation on room air No JVD Normal breath sounds no rhonchi no crackles Normal heart sounds normal S1 normal S2 no murmurs no gallops no rub Abdomen soft Extremity is warm no edema REVIEW OF LABS, ECG & MEDICAL DATA Labs are reviewed. Hemoglobin 14.7 platelets 198,000 Normal sodium 139, potassium 4.7, BUN 13 and creatinine 0.77 Amiodarone discontinued 2 weeks back Physical Exam Vitals: Vital Signs Temp Pulse Resp BP Pulse Ox 12/06/18 09:35 97.7 F 59 L 16 110/74 99 Intake and Output 12/06/18 12/06/18 12/06/18 06:59 14:59 22:59 Intake Total 288 Balance 288 Intake: IV 288 Past Medical History Past Medical History: Atrial Fibrillation, Atrial Flutter, Sleep Apnea/CPAP/BIPAP, Syncope Additional Past Medical History / Comment(s): SEE DR SALAS'S H&P History of Any Multi-Drug Resistant Organisms: None Reported Past Surgical History: Cardiac Ablation, Heart Catheterization Additional Past Surgical History / Comment(s): SEE DR SALAS'S H&P. Cardiac ablation x 3, cardioversion, cardiac cath Past Anesthesia/Blood Transfusion Reactions: No Reported Reaction Smoking Status: Former smoker - Past Family History Father Family Medical History: Congestive Heart Failure (CHF) Additional Family Medical History / Comment(s): Father is . Mother Sister(s) Family Medical History: Cancer Additional Family Medical History / Comment(s): Mother is . She had breast cancer. Physical Examination Vital Signs Temp Pulse Resp BP Pulse Ox 12/06/18 09:35 97.7 F 59 L 16 110/74 99 Intake and Output 12/06/18 12/06/18 12/06/18 06:59 14:59 22:59 Intake Total 288 Balance 288 Intake: IV 288 Results 12/06/18 09:50 12/06/18 09:50 CBC 12/06/18 Range/Units 09:50 WBC 6.1 (3.8-10.6) k/uL RBC 4.84 (4.30-5.90) m/uL Hgb 14.7 (13.0-17.5) gm/dL Hct 42.9 (39.0-53.0) % Plt Count 198 (150-450) k/uL Comprehensive Metabolic Panel 12/06/18 Range/Units 09:50 Sodium 139 (137-145) mmol/L Potassium 4.7 (3.5-5.1) mmol/L Chloride 107 (98-107) mmol/L Carbon Dioxide 23 (22-30) mmol/L BUN 13 (9-20) mg/dL Creatinine 0.77 (0.66-1.25) mg/dL Glucose 118 H (74-99) mg/dL Calcium 9.3 (8.4-10.2) mg/dL Current Medications Generic Name Dose Route Start Last Admin Trade Name Freq PRN Reason Stop Dose Admin Acetaminophen 650 mg 12/06/18 16:04 Tylenol Tab PO Q6HR PRN Mild Pain Hydrocodone Bitart/Acetaminophen 1 each 12/06/18 16:04 Odell 5-325 PO Q4HR PRN Moderate Pain Apixaban 5 mg 12/06/18 21:00 Eliquis PO BID [place] Atenolol 50 mg 12/07/18 09:00 Tenormin PO DAILY [place] Sodium Chloride 1,000 mls @ 20 mls/hr 12/06/18 07:26 12/06/18 09:45 Saline 0.9% IV 75 mls .Q24H [place] Administration Acetaminophen 1,000 mg/ IV 100 mls @ 400 mls/hr 12/06/18 16:04 Solution IVPB 12/06/18 16:18 ONCE ONE Sodium Chloride 12 ml 12/06/18 21:00 Saline Flush IV Q12HR [place] Intake and Output 12/06/18 12/06/18 12/06/18 06:59 14:59 22:59 Intake Total 288 Balance 288 Intake: IV 288 12/06/18 09:50 12/06/18 09:50
--- NOTE | 2018-12-06 16:25 | P.PN ---
Subjective Patient underwent pulmonary vein isolation of fairly large pulmonary veins, hypertensive antral level. The left atrium was quite large. After pulmonary isolation 3-D mapping of the left atrium and the pulmonary veins was performed and complete entrance and exit block was demonstrated with completely isolated pulmonary veins at an anterolateral Multiple ablations had to be performed with a Girish Dailyman along the antral level outside the veins to achieve an antral level block in this very large atrium Hence this procedure took a longer time in the usual pulmonary vein ostia level isolation Objective - Vital Signs Vital signs: Vital Signs Temp 97.7 F 12/06/18 09:35 Pulse 59 L 12/06/18 09:35 Resp 16 12/06/18 09:35 BP 110/74 12/06/18 09:35 Pulse Ox 99 12/06/18 09:35 Intake & Output 12/05/18 12/06/18 12/06/18 18:59 06:59 18:59 Intake Total 1923 Output Total 525 Balance 1398 Intake: IV 1923 Output: Urine 525 - Labs CBC & Chem 7: 12/06/18 09:50 12/06/18 09:50 Labs: Abnormal Lab Results - Last 24 Hours (Table) 12/06/18 Range/Units 09:50 Glucose 118 H (74-99) mg/dL
[2018-12-06] MEDS ORDERED: ACETAMINOPHEN IV (For NPO) 1,000 MG in EMPTY BAG 1 BAG IVPB ONE (17:00)
[2018-12-06] MEDS: APIXABAN 5 MG TAB PO SCH (21:02)
--- NOTE | 2018-12-07 07:18 | CE ---
CARDIAC ELECTROPHYSIOLOGY REPORT This is a 58-year-old male patient who has had very frequent episodes of paroxysmal atrial tachycardia with RVR which were very symptomatic associated with presyncope as well as syncope. These are often associated with aberrancy. He was on flecainide and was breaking through on this. In addition, he has had nonsustained runs of wide-complex tachycardia on flecainide, consistent with ventricular tachycardia episodes. Coronary arteries are normal. LV function is normal. Thereafter, he was treated with oral amiodarone, but this did not result in suppression of atrial tachycardia and he continued to have breakthrough episodes. He was brought in for an EP study and ablation for atrial fibrillation as well as ablation for symptomatic paroxysmal atrial tachycardia. Patient was brought to the EP lab in a fasting state. Written informed consent was obtained prior to the procedure. He was in sinus rhythm at this time. Procedure performed under general anesthesia. One venous sheath was placed in the right femoral vein and two venous sheaths in the left femoral vein. Via these, diagnostic mapping and ablation catheters were placed in the high right atrium, His bundle area, right ventricle, coronary sinus, right atrium and left atrium. A PentaRay catheter was used to perform voltage mapping of the left atrium. Initially, cryoablation of the pulmonary veins was performed. Left and right transseptal catheterization was performed. RA pressure 16/10/13 mmHg and LA pressure was 21/10/6 mmHg. Intracardiac echo was performed. There was no thrombus in the left atrial or right atrial appendages. The left atrium was large. There was no pericardial effusion noted. LV function was normal. Successful cryoablation was performed sequentially along the left superior and left inferior and right superior and right inferior pulmonary veins. Phrenic nerve pacing was performed and there was no evidence of phrenic nerve injury. There was no evidence for rising esophageal temperatures during the procedure. This was centrally positioned in esophagus to the pulmonary veins. Following completion of pulmonary vein isolation, antral level ablation was performed along the right-sided veins to cover the right-sided roof and soledad of the right-sided pulmonary veins. In addition, the patient had a right middle vein which was also successfully ablated. Thereafter, a detailed voltage map of the left atrium was performed. A PentaRay catheter was placed and the pulmonary veins were completely isolated. Far field signals from the left atrial appendage were noted in the left superior pulmonary. With pacing of the left atrial appendage, the pulmonary veins were found to be completely isolated. There was both entrance and exit block noted. A detailed EP study was performed on high-dose Isuprel as well as during the washout. Burst stimulation down to 200 milliseconds from the high right atrium, coronary sinus os and distal coronary sinus was performed. Double extra stimuli from the high right atrium and from the coronary sinus was performed. Triple extrastimuli on Isuprel was performed from the coronary sinus. There was no induction of any atrial tachycardia nor was any atrial fibrillation induced despite fairly aggressive protocol on high-dose Isuprel as well during the washout. Hopefully, this gentleman has pulmonary vein dependent atrial tachycardias and his pulmonary veins have been completely isolated at an antral level with both demonstrated entrance and exit block. The patient tolerated the procedure well without any acute complications. At the end of the procedure, there was no pericardial effusion. LV function was normal. Vitals were stable and he was extubated successfully. RESULT: 1. Successful isolation of the reconnected pulmonary veins, complete entrance and exit block was demonstrated at an antral level. 2. Following that, a very detailed EP study on high-dose Isuprel and a fairly aggressive atrial stim protocol was used, but neither any atrial tachycardia nor any atrial fibrillation could be induced. PLAN: 1. Continue apixaban. 2. No amiodarone. 3. No flecainide. Please note that patient has had nonsustained ventricular tachycardia on flecainide. MMODL / IJN: [id number] /
[2018-12-07] MEDS: APIXABAN 5 MG TAB PO SCH (08:17)
[2018-12-07] MEDS ORDERED: ATENOLOL 50 MG TAB PO SCH (09:00)
[2018-12-07 15:47] VITALS: BP 105/66; PULSE 77; RESP 17; TEMP 98.4
--- NOTE | 2018-12-07 17:15 | P.DS ---
Providers Attending physician: Curt Salas Primary care physician: Stated None Hospital Course: Patient is a 58-year-old male with a past medical history of atrial fibrillation status post PVI in atrial flutter status post ablation who presented for an atrial fibrillation ablation. Patient has been experiencing episodes of atrial tachycardia with RVR symptomatic with palpitations, dizziness, lightheadedness and syncope. He was previously being treated with flecainide he had been episo jean of nonsustained wide complex tachycardia consistent with ventricular tachycardia so the flecainide was discontinued. Coronary angiogram showed normal coronary arteries. He was started on amiodarone but continued to have episodes of atrial tachycardia so the amiodarone was discontinued. Yesterday he underwent successful isolation of the reconnected pulmonary veins using cryoablation. He tolerated the procedure well and had no acute events overnight. Patient seen and examined resting comfortably in bed. States he has been getting up to walk around without any dizziness or lightheadedness. Denies any chest pain, pleuritic chest discomfort, shortness of breath, orthopnea, PND. He has been eating, no dysphagia. Complains of mild sore throat. He is urinating without any difficulties. His sutures were removed, denies bleeding. EKG today shows sinus mechanism, normal MA, narrow QRS Labs reviewed, WBC 6.1, hemoglobin 14.7, platelets 198, potassium 4.7, BUN 13, creatinine 10.77 Temperature 98.5F, pulse 73, respirations 18, blood pressure 105/70, oxygen saturation 96% on room air Patient seen and examined resting comfortably in bed, in no acute distress Lungs clear to auscultation bilaterally, no wheezing rhonchi or crackles Heart is regular, normal S1-S2, no murmurs rubs or gallops No elevated JVD or lower extremity edema Groins minimally tender to palpation, no hematomas Impression Symptomatic paroxysmal atrial fibrillation status post PVI Atrial flutter status post ablation History of ventricular tachycardia on flecainide Plan Continue current cardiac medication regimen including anticoagulation Follow-up with the patient in the office within 1 week Avoid flecainide in the future Plan - Discharge Summary Discharge Rx Participant: No New Discharge Prescriptions: No Action Atenolol [Tenormin] 50 mg PO DAILY #90 tab Apixaban [Eliquis] 5 mg PO BID #28 tab Discharge Medication List Atenolol [Tenormin] 50 mg PO DAILY #90 tab 05/23/14 [Rx] Apixaban [Eliquis] 5 mg PO BID #28 tab 10/22/18 [Rx] Follow up Appointment(s)/Referral(s): Curt Salas MD [STAFF PHYSICIAN] - 12/15/18 9:30 am (Follow up in the office for a Site Check with Dr. Salas as scheduled for you) Patient Instructions/Handouts: Electrophysiology Study (DC) Activity/Diet/Wound Care/Special Instructions: See Activity Restriction Instructions Discharge Disposition: HOME SELF-CARE
== END 2018-12-07 16:50 | disposition home or self-care (01) ==
LOC: CATHEP 09:05 → 1SOBS 16:41 → CATHEP 12-07 16:50
PROVIDERS: ATTEND Internal Medicine Clinical Cardiac Electrophysiology
DX: I47.1 Supraventricular tachycardia (principal); I48.91 Unspecified atrial fibrillation; I48.92 Unspecified atrial flutter; G47.30 Sleep apnea, unspecified; Z99.89 Dependence on other enabling machines and devices; Z87.891 Personal history of nicotine dependence; Z80.3 Family history of malignant neoplasm of breast; Z84.89 Family history of other specified conditions; Z79.01 Long term (current) use of anticoagulants; Z79.899 Other long term (current) drug therapy; Z88.8 Allergy status to other drugs, medicaments and biological substances
CPT/HCPCS: 85347; 93656; 80048; 85025; C1769 ×4; C1894 ×2; C1731; C1759; C1893; C1733; C1730; J2250; J2720; J1644 ×3; J1940; J2405; J2001; J3010; J1100; J0131; J2370; J0330; J2704; Q9966

== ENCOUNTER → 2024-04-12 | Outpatient (CLI) | payer OTHER ==
--- NOTE | 2024-04-12 12:54 | CT ---
EXAMINATION TYPE: CT angio chest DATE OF EXAM: 04/12/2024 COMPARISON: NONE HISTORY: Thoracic aortic aneurysm w/o rupture CT DLP: 1133.8 mGycm. Automated Exposure Control for Dose Reduction was Utilized. CONTRAST: CTA scan of the thorax is performed without and with IV Contrast, patient injected with 100 mL of Iso lucero 370, aneurysm protocol. 3D reconstructed images are created on an independent workstation and re viewed. FINDINGS: LUNGS: The lungs are grossly clear, there is no concerning parenchymal mass or focal consolidation id entified. Subcentimeter calcified nodule of benign granuloma in the right mid lung axial image 40 ser ies 5. There is no pleural effusion or pneumothorax seen. The tracheobronchial tree is patent. MEDIASTINUM: There is satisfactory enhancement of the central pulmonary arteries. Noncontrast images show no suspicious presents material to suggest intramural hematoma. Aorta measures up to 4.5 cm on c oronal images at the root. Aorta measures 3.9 cm the level of the main pulmonary artery axial image 7 5. There is bovine type arch which is normal variant. No aneurysm in the arch or descending aorta. No linear hypodensity to suggest dissection. No significant stenosis. There are no greater than 1 cm hi lar or mediastinal lymph nodes. No cardiomegaly or pericardial effusion is seen. OTHER: Slight scoliotic curvature. Straightening of spine on sagittal images. IMPRESSION: Ascending aortic aneurysm up to 4.5 cm at the aortic root [facility] Ambrosio Rowe, , 04/12/2024 12:51 PM
== END | disposition home or self-care (01) ==
LOC: RADCTMAIN 11:37
PROVIDERS: ATTEND Internal Medicine Clinical Cardiac Electrophysiology
DX: I71.21 Aneurysm of the ascending aorta, without rupture (principal)
CPT/HCPCS: 71275; Q9967